=== PATIENT | female | born 1980 | race Caucasian/White ===

== ENCOUNTER 2017-07-07 08:53 | Emergency (ER) | payer OTHER ==
[~2017-07-07] VITALS: Ht 165.1 cm; Wt 113.6 kg
[2017-07-07 10:04] LABS: HEMATOCRIT 38.3 % (36.0-46.0); MCH 27.8 PG (29.0-34.0); MCHC 32.6 G/DL (30.0-36.0); MCV 85.1 FL (83-99); MEAN PLAT.VOLUME 9.7 uM^3 (9.5-12.4); PLATELET COUNT 319 K/uL (156-360); RBC DIS.WIDTH-CV 13.5 % (11.8-14.6); RBC DIS.WIDTH-SD 42.3 % (39-53)
[2017-07-07 10:20] LABS: CHLORIDE 108 mEq/L (99-109); POTASSIUM 4.1 mEq/L (3.7-5.4); SODIUM 138 mEq/L (136-147)
[2017-07-07 10:21] LABS: GLUCOSE 101 mg/dL (70-99)
[2017-07-07 10:23] LABS: ANION GAP 8 MEQ/L (2-14)
[2017-07-07 10:25] LABS: GFR ESTIMATE (CALCULATED) > 59 mL/min/
[2017-07-07 10:26] LABS: UREA NITROGEN (BUN) 9 mg/dL (9-23)
[2017-07-07 10:54] LABS: ADD MIUA? YES; BILIRUBIN NEGATIVE; BLOOD NEGATIVE; COLOR YELLOW ((YELLOW)); GLUCOSE (STRIP) NEGATIVE; KETONES NEGATIVE; LEUKOCYTES NEGATIVE; NITRITE NEGATIVE; PROTEIN (STRIP) NEGATIVE; SPECIFIC GRAVITY 1.011 (1.000-1.030); UROBILINOGEN 0.2 MG/DL (0.2-1.0)
[2017-07-07 11:11] LABS: BACTERIA RARE /HPF; EPITHELIAL CELLS 2+ /HPF; MUCUS TRACE /LPF; RED BLOOD CELLS 0-5 /HPF (0-5); UCUL ADDED? NO; WHITE BLOOD CELLS 0-5 /HPF (0-5)
[2017-07-07] MEDS ORDERED: PERCOCET 5/31 TABLET PO (12:12)
[2017-07-07] MEDS ORDERED: FLEXERIL10 MG PO (12:12)
[2017-07-07 12:23] VITALS: BP 100/64
== END 2017-07-07 12:25 | disposition home or self-care (01) ==
LOC: EME 08:53
PROVIDERS: Nurse Practitioner Family
DX: M54.5 Low back pain (principal)
CPT/HCPCS: 74176; 80048; 81003; 85027; 99281; 99284; J1885